=== PATIENT | male | born 1955 | race Caucasian/White ===

== ENCOUNTER 2016-12-18 15:06 | Emergency (ER) | payer MEDICARE ==
[~2016-12-18] VITALS: Ht 182.9 cm; Wt 122.5 kg
--- NOTE | ~2016-12-18 | CT52 ---
[facility] A Service of [facility] RADIOLOGY TEXT RESULTS PATIENT: PETER CASE LOCATION: [facility] : 59 UNIT #: [id number] AGE: [address]: Wes Mobley MD SEX: M ORDER DR: [id number] [facility] [address] [place], [place] [address] [id number] E MR#: [id number] Acc #: [id number] NAME: PETER CASE : 1955 SEX: M STUDY DATE/TIME: 12/18/2016 15:47 UNIT: [facility] ROOM: STUDY DESCRIPTION: CT Cervical Spine Wo Cont Attending Physician: Wes Mobley M.D. Ordering Physician: Wes Mobley M.D. Primary Care Physician: Guilherme Sherman M.D. MEDICAL IMAGING REPORT This report is preliminary unless electronic signature is present REVISED REPORT EXAM CT of the cervical spine without contrast dated 12/18/16 COMPARISON STUDIES MRI cervical spine without contrast dated 09/20/15 and plain film cervical spine dated 08/08/15. HISTORY The patient fell 2 days ago with head and neck pain for 2 days. Posterior neck pain. TECHNIQUE This CT exam was performed with one or more of the following radiation dose reduction techniques: automatic exposure control, adjustment of mA and/or kV according to patient size, and iterative reconstruction. FINDINGS CT of the cervical spine was obtained without contrast in the axial plane followed by sagittal and coronal reformats. Degenerative disk and facet changes are noted at multiple levels. No acute displaced fracture or subluxation. No destructive bony mass, jumped or perched facet joints are seen. Visualized craniovertebral junction is grossly unremarkable. C2-C3: Disk osteophyte complex with mild bilateral facet hypertrophic changes are noted, relatively worse on the left. No significant canal stenosis or neural foraminal narrowing. C3-C4: Disk osteophyte complex with borderline size to mild canal stenosis. No neural foraminal narrowing or facet changes. [facility] A Service [facility] RADIOLOGY TEXT RESULTS PATIENT: PETER CASE LOCATION: [facility] : 59 UNIT #: [id number] AGE: [address]: Wes Mobley MD SEX: M ORDER DR: C4-C5: Disk osteophyte complex which is most prominent in the center with borderline sized to mild canal stenosis. No significant neural foraminal narrowing. Mild bilateral facet changes. C5-C6: Disk osteophyte complex with left uncinate spur and mild inferior left neural foraminal narrowing. Borderline sized to mild canal stenosis. C6-C7, C7-T1: Disk osteophyte complex without any significant canal stenosis or neural foraminal narrowing. IMPRESSION 1. No acute fracture or subluxation. 2. Degenerative changes are noted at multiple levels as described above, mild. Dictated by... Maria Del Carmen Reyes M.D. THIS IS AN ELECTRONICALLY VERIFIED REPORT Maria Del Carmen Reyes M.D. at 01/27/2017 9:12 AM CPR/aldair TD: 12/18/2016 20:38 JOB #: [id number] CC: Jeff/charles Please Delete MEDICAL IMAGING REPORT Page 1 of 1 COPY
--- NOTE | ~2016-12-18 | CT71 ---
[facility] A Service of [facility] RADIOLOGY TEXT RESULTS PATIENT: PETER CASE LOCATION: [facility] : 59 UNIT #: [id number] AGE: [address]: Wes Mobley MD SEX: M ORDER DR: [id number] [facility] [address] [place], [place] [address] [id number] E MR#: [id number] Acc #: [id number] NAME: PETER CASE : 1955 SEX: M STUDY DATE/TIME: 12/18/2016 15:40 UNIT: [facility] ROOM: STUDY DESCRIPTION: CT Head Wo Contrast Attending Physician: Wes Mobley M.D. Ordering Physician: Wes Mobley M.D. Primary Care Physician: Guilherme Sherman M.D. MEDICAL IMAGING REPORT This report is preliminary unless electronic signature is present EXAM CT head without contrast 12/18/2016 COMPARISON STUDIES None. HISTORY Patient fell 2 days ago. Head and neck pain for [address] of the head was obtained without contrast in the axial plane as per the protocol. This CT exam was performed with one or more of the following radiation dose reduction techniques: automatic exposure control, adjustment of mA and/or kV according to patient size, and iterative reconstruction. FINDINGS No acute intracranial hemorrhage, space occupying mass, mass effect, midline shift, or hydrocephalus. Mild streak artifact is noted due to motion at the level of the abhilash. Paranasal sinus mucosal thickening is noted, particularly in bilateral maxillary and ethmoid sinuses where it is relatively worse. Frothiness is seen in bilateral maxillary sinuses. Mastoid air cells are well-aerated. Orbits within the ocular structures do not demonstrate any significant abnormality. IMPRESSION 1. No demonstrable acute intracranial abnormality. 2. Paranasal sinus mucosal thickening is noted with some frothiness in bilateral maxillary antra, suspicious for [id number] sinusitis in the appropriate clinical setting. [facility] A Service [facility] RADIOLOGY TEXT RESULTS PATIENT: PETER CASE LOCATION: [facility] : 59 UNIT #: [id number] AGE: [address]: Wes Mobley MD SEX: M ORDER DR: Dictated by... Maria Del Carmen Reyes M.D. THIS IS AN ELECTRONICALLY VERIFIED REPORT Maria Del Carmen Reyes M.D. at 12/19/2016 7:54 PM CPR/pcl TD: 12/18/2016 20:34 JOB #: [id number] MEDICAL IMAGING REPORT Page 1 of 1 COPY
--- NOTE | ~2016-12-18 | CR181 ---
[facility] A Service of [facility] RADIOLOGY TEXT RESULTS PATIENT: PETER CASE LOCATION: [facility] : 59 UNIT #: [id number] AGE: [address]: Wes Mobley MD SEX: M ORDER DR: [id number] [facility] [address] [place], [place] [address] [id number] E MR#: [id number] Acc #: [id number] NAME: PETER CASE : 1955 SEX: M STUDY DATE/TIME: 12/18/2016 16:17 UNIT: [facility] ROOM: STUDY DESCRIPTION: CR Lumbar Spine 2 or 3 Views Attending Physician: Wes Mobley M.D. Ordering Physician: Wes Mobley M.D. Primary Care Physician: Guilherme Sherman M.D. MEDICAL IMAGING REPORT This report is preliminary unless electronic signature is present 2nd REVISION EXAM Lumbar spine series dated 12/18/2016. COMPARISON Thoracic spine series dated 10/18/2016. HISTORY Back pain post fall on December 16, 2016. FINDINGS 3 views of the lumbar spine were obtained. Vertebral body heights and alignment are preserved. Anterior endplate osteophytes are at multiple levels. No acute displaced fracture or subluxation. Pedicles are intact. Postoperative changes are noted in the soft tissues in the right paraspinal region of the upper to mid-abdomen and adjacent to the right facet joint. Correlate with history. IMPRESSION 1. No acute displaced fracture, subluxation or destructive bony lesions. *INCORRECT TECHNIQUE REMOVED* Dictated by... Maria Del Carmen Reyes M.D. THIS IS AN ELECTRONICALLY VERIFIED REPORT Maria Del Carmen Reyes M.D. at 01/27/2017 9:12 AM CPR/pcl [facility] [place] [facility]IOLOGY TEXT RESULTS PATIENT: PETER CASE LOCATION: [facility] : 59 UNIT #: [id number] AGE: [address]: Wes Mobley MD SEX: M ORDER DR: TD: 12/18/2016 22:41 JOB #: [id number] CC: Jeff/charles Please Delete MEDICAL IMAGING REPORT Page 1 of 1 COPY
--- NOTE | ~2016-12-18 | CR132 ---
[facility] A Service of [facility] RADIOLOGY TEXT RESULTS PATIENT: PETER CASE LOCATION: [facility] : 59 UNIT #: [id number] AGE: [address]: eWs Mobley MD SEX: M ORDER DR: [id number] [facility] [address] [place], [place] [address] [id number] E MR#: [id number] Acc #: [id number] NAME: PETER CASE : 1955 SEX: M STUDY DATE/TIME: 12/18/2016 15:57 UNIT: [facility] ROOM: STUDY DESCRIPTION: CR Forearm 2 View Lt Attending Physician: Wes Mobley M.D. Ordering Physician: Wes Mobley M.D. Primary Care Physician: Guilherme Sherman M.D. MEDICAL IMAGING REPORT This report is preliminary unless electronic signature is present EXAM Left forearm series dated 12/18/2016. COMPARISON None. HISTORY Left forearm pain post fall on December 16. FINDINGS 2 views of the left forearm were obtained. AP and lateral views of the forearm show no evidence of fracture or destructive bone lesion. No periosteal elevation is seen. No radiodense foreign bodies are noted. Adjacent soft tissue structures are normal. IMPRESSION Normal forearm. Dictated by... Maria Del Carmen Reyes M.D. THIS IS AN ELECTRONICALLY VERIFIED REPORT Maria Del Carmen Reyes M.D. at 12/19/2016 7:54 PM CPR/pcl TD: 12/18/2016 22:40 JOB #: [id number] MEDICAL IMAGING REPORT Page 1 of 1 COPY
--- NOTE | ~2016-12-18 | CR243 ---
[facility] A Service of [facility] RADIOLOGY TEXT RESULTS PATIENT: PETER CASE LOCATION: [facility] : 59 UNIT #: [id number] AGE: [address]: Wes Mobley MD SEX: M ORDER DR: [id number] [facility] [address] [place], [place] [address] [id number] E MR#: [id number] Acc #: [id number] NAME: PETER CASE : 1955 SEX: M STUDY DATE/TIME: 12/18/2016 16:11 UNIT: [facility] ROOM: STUDY DESCRIPTION: CR Thoracic Spine 3 Views Attending Physician: Wes Mobley M.D. Ordering Physician: Wes Mobley M.D. Primary Care Physician: Guilherme Sherman M.D. MEDICAL IMAGING REPORT This report is preliminary unless electronic signature is present EXAM Thoracic spine series, dated 12/18/2016. COMPARISON Lumbar spine series, dated 12/18/1977. HISTORY Back pain post fall on December 16, 2016. FINDINGS Frontal, lateral and swimmer's views of the thoracic spine were obtained. The lower portion of the thoracic spine and the thoracolumbar junction are not included on the current study but are better seen in the lumbar spine series from the same day. Hence the apparent study is read in conjunction with it. No acute displaced fracture or subluxation is seen. Multilevel endplate osteophytes and degenerative changes are noted in the lower thoracic spine. Dictated by... Maria Del Carmen Reyes M.D. THIS IS AN ELECTRONICALLY VERIFIED REPORT Maria Del Carmen Reyes M.D. at 12/19/2016 7:54 PM CPR/jt TD: 12/18/2016 22:57 JOB #: [id number] MEDICAL IMAGING REPORT Page 1 of 1 COPY
--- NOTE | ~2016-12-18 | CR169 ---
[facility] A Service of [facility] RADIOLOGY TEXT RESULTS PATIENT: PETER CASE LOCATION: [facility] : 59 UNIT #: [id number] AGE: [address]: Wes Mobley MD SEX: M ORDER DR: [id number] [facility] [address] [place], [place] [address] [id number] E MR#: [id number] Acc #: [id number] NAME: PETER CASE : 1955 SEX: M STUDY DATE/TIME: 12/18/2016 16:07 UNIT: [facility] ROOM: STUDY DESCRIPTION: CR Knee 2 Views Lt Attending Physician: Wes Mobley M.D. Ordering Physician: Wes Mobley M.D. Primary Care Physician: Guilherme Sherman M.D. MEDICAL IMAGING REPORT This report is preliminary unless electronic signature is present EXAM Left knee, two views, 12/18/16 COMPARISON STUDIES None. HISTORY Left knee pain post fall in December 16, 2016. FINDINGS Two views of the left knee were obtained. Horizontal linear opacity is noted in the medial tibial femoral joint space, suspicious for chondrocalcinosis. No acute displaced fracture, dislocation or joint effusion is seen. Small superior patellar spur is noted. Atherosclerotic vascular calcifications are noted in the region of the popliteal artery and distal femoral artery. Dictated by... Maria Del Carmen Reyes M.D. THIS IS AN ELECTRONICALLY VERIFIED REPORT Maria Del Carmen Reyes M.D. at 12/19/2016 7:54 PM CPR/ea TD: 12/18/2016 22:46 JOB #: [id number] MEDICAL IMAGING REPORT Page 1 of 1 COPY
[~2016-12-18 15:06] MED LIST: DOXYCYCLINE HY100 M1 PO; GLIPIZIDE5 MG/BOTTL PO; GLUCOTROL PO; HYDROCHLOROTH12.5 MG PO; LISINOPRIL-HCTZ1 T16 PO; OXYCONTIN80 MG PO; ROXICODONE30 M1 PO; VICODIN 5/500 T1 TAB PO
== END 2016-12-18 18:00 | disposition home or self-care (01) ==
LOC: CED 15:06
DX: S09.90XA Unspecified injury of head, initial encounter (principal); S16.1XXA Strain of muscle, fascia and tendon at neck level, initial encounter; S29.012A Strain of muscle and tendon of back wall of thorax, initial encounter; S39.012A Strain of muscle, fascia and tendon of lower back, initial encounter; S80.02XA Contusion of left knee, initial encounter; E11.9 Type 2 diabetes mellitus without complications; F17.200 Nicotine dependence, unspecified, uncomplicated; Z79.899 Other long term (current) drug therapy; W01.0XXA Fall on same level from slipping, tripping and stumbling without subsequent striking against object, initial encounter; Y92.009 Unspecified place in unspecified non-institutional (private) residence as the place of occurrence of the external cause
CPT/HCPCS: 70450; 72072; 72100; 72125; 73090; 73560; 96374; 99284; J1170